=== PATIENT | male | born 1955 | race Caucasian/White ===

== ENCOUNTER 2021-09-20 09:23 | Observation (INO) ==
--- NOTE | 2021-09-05 12:31 | PAT Medication Instructions ---
Medication Instructions Date of Service September 05, 2021 Home Medications Medication Instructions Recorded acetaminophen 650 mg 650 mg PO Q12H PRN #120 tab 08/04/21 tablet,extended release (Tylenol Arthritis Pain) naproxen 500 mg tablet (Naprosyn) 500 mg PO BID #60 tab 08/04/21 ascorbate calcium (vitamin C) 500 mg tablet 500 mg PO QAM multivitamin 1 tab PO QAM acetaminophen 650 mg tablet,extended release (Tylenol Arthritis Pain) 650 mg PO Q12H PRN naproxen 500 mg tablet (Naprosyn) 500 mg PO BID cholecalciferol (vitamin D3) 25 mcg (1,000 unit) tablet (Vitamin D3) 25 mcg PO QAM ASK your surgeon for instructions naproxen 500 mg tablet (Naprosyn) 500 mg PO BID DO NOT take the morning of surgery ascorbate calcium (vitamin C) 500 mg tablet 500 mg PO QAM multivitamin 1 tab PO QAM cholecalciferol (vitamin D3) 25 mcg (1,000 unit) tablet (Vitamin D3) 25 mcg PO QAM Take morning of surgery With a small sip of water, OTHERWISE NOTHING TO EAT OR DRINK AFTER MIDNIGHT: acetaminophen 650 mg tablet,extended release (Tylenol Arthritis Pain) 650 mg PO Q12H PRN (okay to take up to 4 hours prior to surgery if needed) Take evening before surgery acetaminophen 650 mg tablet,extended release (Tylenol Arthritis Pain) 650 mg PO Q12H PRN (if needed) Other Notes If you have any questions please call us at [phone] or [phone] or [phone] or [phone]
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
[~2021-09-20 09:23] MED LIST: ACETAMINOPHEN 500 MG TAB PO SCH; CeleBREX 200 MG CAP PO SCH; GABAPENTIN 600 MG DOSE PO SCH; LR 15ML/HR IV SCH; ceFAZolin 1000MG 1,000 MG/7.5 ML SYR IV SCH
--- NOTE | 2021-09-20 10:25 | History & Physical Bridge Note ---
Date of Service September 20, 2021 History & Physical Bridge Note I have examined the patient, reviewed the History & Physical and in the interval since the performance of the History & Physical I have noted the following changes of clinical significance: no changes noted
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
[2021-09-20] MEDS ORDERED: ONDANSETRON INJ 2 MG/ML 2 ML VIAL IV PRN ×2 (10:38→16:31)
[2021-09-20] MEDS ORDERED: NALOXONE HCL 0.4 MG/1 ML VIAL/CARP IV PRN ×2 (10:38→16:31)
[2021-09-20] MEDS ORDERED: LABETALOL HCL IV 5 MG/ML 20ML IV PRN (10:38)
[2021-09-20] MEDS ORDERED: FLUMAZENIL 0.1 MG/1 ML 10 ML VIAL IV PRN (10:38)
[2021-09-20] MEDS ORDERED: ATROPINE SULFATE 0.1 MG/ML 10ML SYR IV PRN (10:38)
[2021-09-20] MEDS ORDERED: PROMETHAZINE HCL 12.5 MG in SODIUM CHLORIDE 0.9% 50 ML IV PRN ×2 (10:38→16:31)
[2021-09-20] MEDS ORDERED: ePHEDrine sulfate 50 MG/ML AMP IV PRN (10:38)
[2021-09-20] MEDS ORDERED: GLYCOPYRROLATE 0.2 MG/ML VIAL ONE (10:51)
[2021-09-20] MEDS ORDERED: PROPOFOL IV EMULSION 10 MG/ML 20 ML VIAL IV ONE (10:51)
[2021-09-20] MEDS ORDERED: NEOSTIGMINE METHYLSULFATE 1 MG/ML 10ML VIAL ONE (10:51)
[2021-09-20] MEDS ORDERED: ROCURONIUM BROMIDE 10 MG/ML 5 ML VIAL IV ONE (10:51)
[2021-09-20] MEDS ORDERED: ONDANSETRON INJ 2 MG/ML 2 ML VIAL ONE (10:51)
[2021-09-20] MEDS ORDERED: LIDOCAINE 2% 2 ML VIAL/AMP(20MG/ML) INFIL ONE (10:51)
[2021-09-20] MEDS ORDERED: DEXAMETHASONE SOD INJ 4 MG/ML VIAL ONE (10:51)
[2021-09-20] MEDS ORDERED: fentaNYL citrate 100 MCG/2 ML VIAL ONE ×3 (10:52→13:17)
[2021-09-20] MEDS ORDERED: ceFAZolin 330 MG/ML 1 GM VIAL ONE (10:52)
[2021-09-20] MEDS ORDERED: BUPIVACAINE/EPINEPHRINE 0.25% 1:200,000 30 ML VIAL ONE (10:52)
[2021-09-20] MEDS ORDERED: MIDAZOLAM HCL 1 MG/ML 2ML VIAL ONE (10:52)
[2021-09-20] MEDS ORDERED: FLOSEAL HEMOSTATIC MATRIX 10ML TOP ONE (12:09)
[2021-09-20] MEDS ORDERED: PHENYLEPHRINE 100MCG/ML 5ML SYR ONE (12:54)
--- NOTE | 2021-09-20 13:18 | Operative Report ---
Post Operative Report Pre & Post Diagnosis Operation Date: 09/20/21 11:05 Pre-Op Diagnosis: Neurogenic claudication due to lumbar spinal stenosis Post-Op Diagnosis: Neurogenic claudication due to lumbar spinal stenosis I identified the patient and participated in the time-out.: Yes Procedure Operation Date: 09/20/21 11:05 Actual Procedures #1 lumbar decompression with bilateral medial facetectomies and foraminotomies L2-3, L3-4 and L4-L5. #2 posterior spinal fusion L3-L4 L4-5. #3 placement posterior instrumentation L3-L4 L4-5. #4 interbody fusion L3-L4 L4-L5. #5 placement of Spira cage 12 x 26 at L3-L4 and 13 x 26 at L4-5. #6 placement locally harvested morselized autograft in the posterior gutters. #7 placement of I factor combined with V toss in the interbody space and posterior lateral gutters. Surgeon Daniel Willson, Director Speech Steph Brooks Estimated Blood Loss 150 Findings Consistent with Post-Op Diagnosis Specimens None Indications This is a 66-year-old male who presents with above-mentioned diagnosis after failed course of nonoperative care is here for surgical invention. Description of Procedure Patient was met with identified informed consent obtained. Patient was then taken to the operative suite underwent a patient placed in a prone position the [place] table top Will frame. All bony prominences were well-padded eyes inspected to ensure no external pressure placed upon the. This point the lumbar spine was prepped and draped in normal sterile fashion. Sharp dissection with the assistance of Bovie cautery was performed down to and exposing the lamina and transverse processes of L3-L4-L5 bilaterally. From a caudal to cephalad fashion complete laminectomy of L4 L3 and partial laminectomy of L2 was performed including bilateral medial facetectomies and foraminotomies addressing severe spinal stenosis as well as a massive disc herniation noted at L4-L5 centrally. After complete decompression pedicle screws were placed at L3-L4-L5 bilaterally with assistance of fluoroscopy purposes yan placed. By way of a transforaminal approach on the right a complete discectomy of L4-5 was performed endplates curetted to subcortical bleeding bone and the 13 x 26 mm titanium cage filled with I factor tapped in position. I then proceeded to L3-L4 to get by way of a transforaminal portion radically discectomy performed endplates curetted to subcortical bleeding bone and a 13 x 26 mm titanium cage with I factor tapped in position. The rods were then compressed locked in final position bilaterally. The transverse processes of L3 L4-5 burred to subcortical bleeding bone. I factor combined with the toxin locally harvested morselized autograft was placed in the posterior gutters. 15 round YONAS drain inserted. The incision was then closed with 1 Vicryl the fascia 2-0 Vicryl subcutaneously and 4 Monocryl for final skin closure. Steri-Strip sterile dressings placed. Patient will continue PACU stable condition. Please note spinal cord monitoring was last that the procedure no changes noted. Lastly Steph Brooks was present out the entire procedure involved the patient positioning complex portions of the surgery and final skin closure. I attest to the content of the Intraoperative Record and any orders documented therein. Any exceptions are noted below.
--- NOTE | 2021-09-20 13:31 | Fluoroscopy Report ---
FL lumbar spine 2-3V CLINICAL HISTORY: L3-L5 D/F COMPARISON STUDY: None FLUOROSCOPY TIME: 25 seconds. FLUOROSCOPIC IMAGES: 2 FINDINGS: Fluoroscopy was provided during L3-L4 and L4-L5 discectomies with interbody spacer placemen t. Posterior decompression is noted with bilateral pedicle screws at the L3, L4 and L5 levels. Hard[place] re is intact. The surgeon was aware of the radiodensity within the operative bed. IMPRESSION: Fluoroscopy provided during L3-L5 discectomy, posterior decompression and bilateral scre w fusion. ACT 112: Negative or not required by law. Electronically signed by: Denny Valdes M.D. 09/20/2021 1:30 PM
[2021-09-20] MEDS: fentaNYL citrate 100 MCG/2 ML VIAL IV PRN ×4 (14:00→14:20)
--- NOTE | 2021-09-20 15:23 | Anesthesiology Progress Note ---
Date of Service September 20, 2021 Anesthesia Post Procedure Vital Signs Vital Signs: Temp Pulse Pulse Resp BP Pulse Ox 09/20/21 15:20 36.5 C 85 17 125/74 94 09/20/21 15:10 77 17 106/60 94 09/20/21 15:00 75 12 113/65 93 09/20/21 14:50 70 14 111/60 93 09/20/21 14:40 68 12 127/66 93 09/20/21 14:30 36.2 C L 75 19 138/72 94 09/20/21 14:20 63 14 131/70 93 09/20/21 14:10 66 17 135/74 93 09/20/21 14:00 81 14 138/80 96 09/20/21 13:50 80 13 128/77 99 09/20/21 13:40 79 12 133/74 99 09/20/21 13:30 36.2 C L 98 H 20 142/74 H 100 09/20/21 09:53 37.1 C 91 H 18 132/86 97 Pain Intensity Back: Pain Intensity: 3 Transfer of Care Handoff Completed per policy Notes Mental Status: alert / awake / arousable Patient Amnestic to Procedure: Yes Nausea / Vomiting: adequately controlled Pain: adequately controlled Airway Patency, RR, SpO2: stable & adequate BP & HR: stable & adequate Hydration State: stable & adequate Anesthetic Complications: no major complications apparent
[2021-09-20] MEDS: HYDROmorphone INJ 1 MG/ML SYRINGE IV PRN ×2 (15:30→15:35)
[2021-09-20] MEDS ORDERED: ALUMINUM/MAGNESIUM SUSP 30 ML UDC PO PRN (16:31)
[2021-09-20] MEDS ORDERED: MAGNESIUM HYDROXIDE SUSP 30 ML UDC PO PRN (16:31)
[2021-09-20] MEDS ORDERED: LORazepam 2 MG/1 ML VIAL IV PRN (16:31)
[2021-09-20] MEDS ORDERED: SOD PHOSPHATE/SOD BIPHOSPHATE ENEMA 132 ML BTL PR PRN (16:31)
[2021-09-20] MEDS ORDERED: HYDROmorphone INJ 1 MG/ML SYRINGE IV PRN (16:31)
[2021-09-20] MEDS ORDERED: LORazepam 0.5 MG TAB PO PRN (16:31)
[2021-09-20] MEDS ORDERED: traMADol HCL 50 MG TABLET PO PRN (16:31)
[2021-09-20] MEDS ORDERED: DO NOT ADMINISTER PNEUMOCOCCAL VACCINE PRN (16:31)
[2021-09-20] MEDS ORDERED: bisacodyL 10 MG SUPP PR PRN (16:31)
[2021-09-20] MEDS ORDERED: HYDROmorphone INJ 0.5 MG/0.5 ML SYR IV PRN (16:31)
[2021-09-20] MEDS ORDERED: ACETAMINOPHEN 1,000 MG/100 ML VIAL IV PRN (16:31)
[2021-09-20] MEDS ORDERED: METOCLOPRAMIDE HCL INJ 5 MG/ML 2 ML VIAL IV PRN (16:31)
[2021-09-20] MEDS ORDERED: diphenhydrAMINE Capsule 25 MG CAP PO PRN (16:31)
[2021-09-20] MEDS ORDERED: DO NOT ADMINISTER FLU VACCINE PRN (16:31)
[2021-09-20] MEDS ORDERED: FAMOTIDINE 20 MG TAB PO PRN (16:31)
[2021-09-20] MEDS ORDERED: ONDANSETRON 4 MG OD TAB PO PRN (16:31)
[2021-09-20] MEDS ORDERED: hydrOXYzine HCl 25 MG TAB PO PRN (16:31)
[2021-09-20] MEDS ORDERED: oxyCODONE HCL IR 5 MG TAB (IMMEDIATE RELEASE) PO PRN (16:31)
[2021-09-20] MEDS: LACTATED RINGER'S 1,000 ML IV SCH (16:49)
[2021-09-20] MEDS: ceFAZolin 2000MG 2,000 MG/15 ML SYR IV SCH (19:50)
[2021-09-20] MEDS: DOCUSATE SODIUM/SENNA 50/8.6MG TAB PO SCH (21:28)
[2021-09-21] MEDS: LACTATED RINGER'S 1,000 ML IV SCH (02:09)
[2021-09-21] MEDS: ceFAZolin 2000MG 2,000 MG/15 ML SYR IV SCH (04:03)
[2021-09-21] MEDS: POLYETHYLENE (MIRALAX) 17 GM PACK PO SCH ×4 (06:01→23:08)
[2021-09-21 06:37] LABS: Hematocrit (blood only) 33.5 % (42-52); Hemoglobin 11.4 g/dL (14.0-18.0); Immature Granulocytes # (auto) 0.05 K/uL (0.00-0.02); Immature Granulocytes % (auto) 0.3 %; Lymphocytes # (auto) 0.82 K/uL (1.2-3.4); Lymphocytes % (auto) 4.9 %; Mean Corpuscular Hemoglobin 32.4 pg (25-34); Mean Corpuscular Volume 95.2 fL (80-100); Mean Platelet Volume 9.6 fL (7.4-10.4); Monocytes # (auto) 1.48 K/uL (0.11-0.59); Monocytes % (auto) 8.9 %; Neutrophils # (auto) 14.23 K/uL (1.4-6.5); Neutrophils % (auto) 85.9 %; Platelet Count 194 K/uL (130-400); RDW Coefficient of Variation 12.7 % (11.5-14.5); RDW Standard Deviation 43.8 fL (36.4-46.3); Red Blood Count 3.52 M/uL (4.7-6.1); White Blood Count 16.58 K/uL (4.8-10.8)
[2021-09-21 06:56] LABS: BUN Creatinine Ratio 15.7 (10-20); Calcium 8.7 mg/dl (8.5-10.1); Creatinine Clr Calc Pharmacy 83.9 ml/min; Est GFR (African American) 104.7 ml/min; Est GFR (Non-African American) 90.4 ml/min; Potassium 4.2 mmol/L (3.5-5.1)
--- NOTE | 2021-09-21 08:51 | Orthopedic Progress Note ---
Date of Service September 21, 2021 Assessment & Plan (1) Neurogenic claudication due to lumbar spinal stenosis: Plan: At this time initiate physical therapy monitor his YONAS operatively discharge home in the next few days. Admission and Anticipated Discharge Date Admission Date: September 20, 2021 Subjective Back pain controlled leg pain markedly improved Physical Exam Physical Exam: Patient is in bed. Appears comfortable. Discussed pain to testing. Results & Data ([facility]) Vital Signs (Past 12 Hours) Vital Signs Temp Pulse Resp BP Pulse Ox 09/21/21 07:00 37 C 75 16 115/72 96 09/21/21 04:00 36.3 C L 84 18 109/66 96 09/20/21 22:06 36.4 C L 81 18 101/67 95
[2021-09-21] MEDS: ACETAMINOPHEN 500 MG TAB PO PRN ×2 (08:58→18:03)
[2021-09-21] MEDS: dexAMETHasone 6 MG in SYRINGE 0 ML IV SCH (08:59)
[2021-09-21] MEDS: MULTIVITAMIN TAB PO SCH (08:59)
[2021-09-21] MEDS: ASCORBIC ACID 500 MG TAB PO SCH (08:59)
[2021-09-21] MEDS: CHOLECALCIFEROL 1,000 UNITS 25 MCG TAB PO SCH (08:59)
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
[2021-09-21] MEDS: DOCUSATE SODIUM/SENNA 50/8.6MG TAB PO SCH (20:15)
[2021-09-22] MEDS: ACETAMINOPHEN 500 MG TAB PO PRN ×3 (04:25→20:14)
[2021-09-22] MEDS: POLYETHYLENE (MIRALAX) 17 GM PACK PO SCH ×3 (06:22→18:37)
[2021-09-22] MEDS: dexAMETHasone 6 MG in SYRINGE 0 ML IV SCH (09:06)
[2021-09-22] MEDS: ASCORBIC ACID 500 MG TAB PO SCH (09:06)
[2021-09-22] MEDS: CHOLECALCIFEROL 1,000 UNITS 25 MCG TAB PO SCH (09:06)
[2021-09-22] MEDS: MULTIVITAMIN TAB PO SCH (09:06)
--- NOTE | 2021-09-22 13:20 | Orthopedic Progress Note ---
Date of Service September 22, 2021 Assessment & Plan (1) Neurogenic claudication due to lumbar spinal stenosis: Plan: At this time we will continue physical therapy monitor his YONAS output anticipate discharge home tomorrow. Admission and Anticipated Discharge Date Admission Date: September 20, 2021 Subjective Patient's back pain is controlled leg pain improved. Physical Exam Physical Exam: Patient is in a chair at the bedside. Is good strength testing. Appears comfortable. Results & Data ([facility]) Vital Signs (Past 12 Hours) Vital Signs Temp Pulse Resp BP Pulse Ox 09/22/21 07:44 36.5 C 72 16 122/79 99
[2021-09-22] MEDS ORDERED: Nursing to Pharmacy Communication SCH (18:45)
[2021-09-22] MEDS: DOCUSATE SODIUM/SENNA 50/8.6MG TAB PO SCH (20:14)
[2021-09-23] MEDS: ACETAMINOPHEN 500 MG TAB PO PRN (05:06)
[2021-09-23] MEDS: MULTIVITAMIN TAB PO SCH (08:42)
[2021-09-23] MEDS: dexAMETHasone 6 MG in SYRINGE 0 ML IV SCH (08:42)
[2021-09-23] MEDS: ASCORBIC ACID 500 MG TAB PO SCH (08:42)
[2021-09-23] MEDS: CHOLECALCIFEROL 1,000 UNITS 25 MCG TAB PO SCH (08:42)
--- NOTE | 2021-09-23 11:30 | Discharge Summary ---
Date of Service September 23, 2021 Admission HPI Per Admitting Provider This is a 66-year-old male who presents with current chest and back and leg pain. Failing course of nonoperative care is here for surgical invention. Principal Diagnosis Lumbar spinal stenosis with neurogenic claudication Discharge Data Allergies Allergy/AdvReac Type Severity Reaction Status Date / Time No Known Drug Allergies Allergy Verified 09/20/21 09:49 Consultations 09/20/21 16:31 Consult Hospitalist Routine Procedures Performed Operation Date: 09/20/21 11:05 Actual Procedures p L3-L5 Decompression Fusion, Spinal Cord Monitoring - Daniel Willson DO Ordered Studies 09/20/21 11:05 [place] lumbar spine 2-3V Routine Hospital Course (1) Neurogenic claudication due to lumbar spinal stenosis: Patient 1 multilevel lumbar decompression fusion tolerated so was taken to orthopedic for postoperative. Postop day 1 he was up and ambulating progress postop day #2 postop day 3 pain was well controlled YONAS drain decreasing probably. Expected testing. Subsequent discharge home. Discharge orders instructions found the chart for further review. Total Time Total Time Spent Total Time Spent (In Minutes): 20 minutes Discharge Plan Discharge Items Patient Disposition: Home - Self-Care Reason For Visit: Intervertebral Disc Disorders with Radiculopathy Discharge Diagnosis: Lumbar spinal stenosis with neurogenic claudication Activity: As commented below Non-emergency contact: Primary Care Provider Call non-emergency contact if: you have any medication questions Follow-up/Referrals: Sabrina Cheek DO [Primary Care Provider] - Diet: Regular Addtl Attending Provider Instructions: ACTIVITY RECOMMENDATIONS: SELF CARE INSTRUCTIONS AFTER THORACIC/LUMBAR FUSIONS 1. You may walk to your tolerance. It is good exercise for your legs and back. Expect some back and intermittent leg aches and pains. 2. You may perform "counter-top" level activities (make a sandwich, jonathan with a project, etc.). 3. No bending or lifting of more than 10 pounds or back twisting of any nature (roll like a log when turning in bed). 4. You may ride in a car for 20-30 minutes at a time. No driving until after your first visit with your doctor. 5. Frequent changes of position and restricting sitting to 30 minutes at a time will help limit the amount of back spasms and stiffness you may experience. 6. You may discontinue the use of ambulatory aids (cane, crutches, etc.) once your strength and confidence allow. 7. You may oil furnace installer the shower and let water strike your incision when you arrive home at least once daily. Do not take a tub bath, sit in a hot tub or go into a swimming pool until after your first recheck in the office. SPECIAL CARE INSTRUCTIONS: VERY IMPORTANT TO READ AND REVIEW A. Your surgical incision has been closed with a cosmetic suture under the skin that will dissolve in about 6 weeks. In 14 days, you can use a pair of clean scissors and cut the suture that is left outside of the skin at the ends of your incision. 1. The small skin tapes can be removed 7 days after surgery if they have not fallen off by that point. 2. You may keep the wound open to air as much as possible to promote healing after post-op day number 5 unless told otherwise by your doctor. 3. If you think the wound looks like it is becoming infected (redness or worsening drainage) and/or you are experiencing fever, chill or worsening back pain and muscle spasms, contact the office so that we may evaluate you as soon as possible. B. Complications are uncommon, but please contact us if you have any signs or symptoms of: 1. wound infection (fever higher than 102.5 degrees F, redness, separation of wound, drainage, or increasing pain from the incision) 2. blood clots in legs (pain, swelling, redness and warmth in legs) 3. urinary tract infection (fever higher than 102.5 degrees F, burning upon urination or increased frequency of urination) 4. nerve problems (inability to walk on your toes or heels, numbness, loss of bowel or bladder control) 5. any other symptoms that concern you C. Please call the office at if you have any concerns or questions about your operation or recovery. D. No smoking! Smoking drastically decreases the chance of a solid fusion. E. Do not take any anti-inflammatory medications (Indocin, Advil, Motrin, Aspirin, Naprosyn, etc.) as these may inhibit the chance of a solid fusion. Tylenol is okay to take for pain. MANAGING PAIN AFTER SPINAL SURGERY 1. Narcotic medication is intended for short-term use and will be provided for surgical pain. Surgical pain usually lasts for a period of 4-6 weeks. Narcotic medication includes Percocet, Vicodin, Darvocet, Tylenol #3 or Lortab. 2. Longer-term pain is more appropriately treated with non-narcotic medication such as Tylenol ES. 3. Muscle spasm is not appropriately treated with narcotics. Muscle relaxers such as Soma, Flexeril or Skelaxin can be used along with Tylenol ES. 4. Remember that we all live with some "aches and pains". This is not unusual or uncommon after an injury or as we get older. a. Back pain is expected and may include muscle spasms for 4 to 6 weeks after surgery. The pain should gradually improve. If the pain worsens for no apparent reason, please contact the office. b. Intermittent leg pain may also be experienced and should not be concerned about unless it worsens for no apparent reason. If so, please contact the office. 5. We will provide appropriate medication within the normal guidelines of their prescribed use. We will also be very cautious and aware of potential abuse and extended duration of patients' medication needs. a. Pain medications are for your comfort and to assist with sleep and rest so that the tissue can heal. They are not provided in order to return to normal activity and should not be used through the day. To do so or worsening pain at night can result from ongoing tissue damage and development of tolerance to the prescribed medicine. 6. Please allow 2-3 days to process refills. Prescriptions will not be mailed but must be picked up at the office. FOLLOW UP VISIT: Keep your scheduled follow-up appointment. Any questions, please call the office at . Pending Studies at Discharge: No Stand-Alone Forms: My [facility] [place], Smoking Cessation Medications and DC Order Prescriptions: New tramadol 50 mg tablet 50 mg PO Q6H PRN (Reason: pain, moderate) Qty: 30 RF: 0 oxycodone 5 mg tablet 5 mg PO Q6H PRN (Reason: pain, severe) Qty: 30 RF: 0 Continued acetaminophen [Tylenol Arthritis Pain] 650 mg tablet extended release 650 mg PO Q12H PRN (Reason: pain) Qty: 120 RF: 1 multivitamin Tablet 1 tab PO QAM RF: 0 ascorbate calcium (vitamin C) 500 mg tablet 500 mg PO QAM RF: 0 tramadol 50 mg tablet 50 mg PO Q8H PRN (Reason: pain) Qty: 90 RF: 0 cholecalciferol (vitamin D3) [Vitamin D3] 25 mcg (1,000 unit) Tablet 25 mcg PO QAM RF: 0 polyethylene glycol 3350 [Miralax] 17 gram Powder In Packet 17 g PO DAILY RF: 0 Discontinued naproxen [Naprosyn] 500 mg tablet 500 mg PO BID Qty: 60 RF: 2 Discharge Orders: Discharge Order (Routine); Ordered 09/23/21 Ordered By: Daniel Willson Admission Data Admit Date/Time: 09/20/21 13:22 Attending Provider: Daniel Willson Admit Provider: Daniel Willson Primary Care Provider: Sabrina Cheek
== END 2021-09-23 13:23 | disposition home or self-care (01) ==
LOC: ASU 09:23 → 3E 13:22 → INTOOBSV 13:22